=== PATIENT | female | born 1960 | race African-American/Black ===

== ENCOUNTER 2017-09-09 19:00 | Emergency (ER) | payer MEDICARE, MEDICAID | END 2017-09-09 19:31 | disposition home or self-care (01) | LOC: SCSER 19:00 | DX: G89.29 Other chronic pain (principal); M54.5 Low back pain; D64.9 Anemia, unspecified; E66.9 Obesity, unspecified; I50.9 Heart failure, unspecified; F41.9 Anxiety disorder, unspecified; M32.9 Systemic lupus erythematosus, unspecified; Z79.899 Other long term (current) drug therapy | CPT/HCPCS: 99283 ==

== ENCOUNTER 2017-09-11 20:02 | Emergency (ER) | payer MEDICARE, MEDICAID ==
--- NOTE | 2017-09-11 21:38 | RAD ---
RADIOGRAPH CHEST 1 VIEW: HISTORY: 56-year-old female with acute chest pain. FINDINGS: There is cardiomegaly. The thoracic aorta is tortuous and ectatic. There is no evidence of air space density, pulmonary edema, or pneumothorax. The lateral costophrenic angles are sharp. IMPRESSION: 1) No acute pulmonary findings. 2) Cardiomegaly without congestive heart failure. 3) Ectasia of thoracic aorta. janes POS: DEBBIE
[2017-09-11] MEDS ORDERED: predniSONE 20 MG TAB ONE (22:19)
[2017-09-11] MEDS ORDERED: Dexamethasone 4 mg/ml Vial ONE (22:23)
[2017-09-11 22:35] LABS: Hematocrit 37.6 % (36.0-47.0); Mean Platelet Volume 7.9 fL (7.4-10.4); Neutrophil 47 % (42-75); Red Blood Cell (RBC) Count 3.91 mill/uL (4.20-5.40); White Blood Cell (WBC) Count 5.5 thou/uL (4.8-10.8)
[2017-09-11 22:42] LABS: ALT (SGPT) 34 U/L (8-55); AST (SGOT) 37 U/L (5-34); Alkaline Phosphatase 95 U/L (40-150); Anion Gap 14 mmol/L (10-20); BUN (Urea Nitrogen) 10 mg/dL (9.8-20.1); Bilirubin, Total 0.5 mg/dL (0.2-1.2); CK (CPK) 147 U/L (29-168); Calc. Creatinine Clearance 0 mL/min (70-130); Calcium 9.8 mg/dL (7.8-10.44); Carbon Dioxide 25 mmol/L (22-29); Chloride 103 mmol/L (98-107); Estimated GFR-MDRD Greater than 90; Lipase 30 U/L (8-78); Protein, Total 7.8 g/dL (6.0-8.3)
[2017-09-11 22:46] LABS: Troponin I 0.012 ng/mL (< 0.028)
--- NOTE | 2017-10-13 13:18 | EKG ---
Test Reason : CP Blood Pressure : / mmHG Vent. Rate : 091 BPM Atrial Rate : 091 BPM P-R Int : 160 ms QRS Dur : 086 ms QT Int : 374 ms P-R-T Axes : 012 -25 -06 degrees QTc Int : 460 ms Sinus rhythm with occasional , and consecutive Premature ventricular complexes and Fusion complexes Moderate voltage criteria for LVH, may be normal variant Left axis deviation Abnormal ECG No changes c/w prior ([id number]) Confirmed by DUSTY LONGO DO ([id number]), electronic news gathering editor FINA PERLA ([id number]) on 10/13/2017 1:18:16 PM Referred By: Confirmed By:DUSTY LONGO DO
== END 2017-09-11 23:43 | disposition home or self-care (01) ==
LOC: ERS 20:02
DX: M54.41 Lumbago with sciatica, right side (principal); M54.42 Lumbago with sciatica, left side; R07.89 Other chest pain; D64.9 Anemia, unspecified; F41.9 Anxiety disorder, unspecified; M19.90 Unspecified osteoarthritis, unspecified site; E66.9 Obesity, unspecified; I50.9 Heart failure, unspecified; Z79.82 Long term (current) use of aspirin; Z79.899 Other long term (current) drug therapy
CPT/HCPCS: 71010; 80053; 82553; 83690; 84484; 85025; 93005; J1100; J7506

== ENCOUNTER 2017-09-17 09:47 | Emergency (ER) | payer MEDICARE, MEDICAID | END 2017-09-17 10:12 | disposition home or self-care (01) | LOC: SCSER 09:47 | DX: M54.5 Low back pain (principal); G89.29 Other chronic pain; D64.9 Anemia, unspecified; E66.9 Obesity, unspecified; F41.9 Anxiety disorder, unspecified; I50.9 Heart failure, unspecified; M32.9 Systemic lupus erythematosus, unspecified | CPT/HCPCS: 99283 ==

== ENCOUNTER 2018-07-02 16:08 | Emergency (ER) | payer MEDICARE, MEDICAID | END 2018-07-02 16:35 | disposition home or self-care (01) | LOC: SCSER 16:08 | DX: R52 Pain, unspecified (principal); F41.9 Anxiety disorder, unspecified; D64.9 Anemia, unspecified; I50.9 Heart failure, unspecified; E66.9 Obesity, unspecified; Z79.899 Other long term (current) drug therapy | CPT/HCPCS: 99284 ==

== ENCOUNTER 2018-09-01 15:18 | Emergency (ER) | payer MEDICARE, MEDICAID ==
[2018-09-01] MEDS ORDERED: HYDROcodone/Acetaminophen 10/325 mg Tablet ONE (17:30)
--- NOTE | 2018-09-01 18:21 | RAD ---
TIBIA AND FIBULA RIGHT LEG TWO VIEW 09/01/18 INDICATION: Pain. FINDINGS: Reference made to a 06/28/06 exam. There is no fracture or dislocation. IMPRESSION: No acute osseous abnormality of the right tibia or fibula. POS: VOLODYMYRK
--- NOTE | 2018-09-01 18:30 | RAD ---
TWO VIEW RIGHT FEMUR SERIES: 09/01/18 INDICATION: Pain. FINDINGS: There is limited visualization of the right hip due to overlying soft tissues which decreases penetra tion. There is no dislocation identified. Femur is otherwise intact. IMPRESSION: No definite acute osseous abnormality of the right femur, within limitations. If there is high level of clinical suspicion for injury at the proximal femur, consider dedicated imaging followup for more definitive evaluation. POS: MALOU
== END 2018-09-01 17:30 | disposition home or self-care (01) ==
LOC: ERS 15:18
DX: G89.29 Other chronic pain (principal); M79.661 Pain in right lower leg; F41.9 Anxiety disorder, unspecified; D64.9 Anemia, unspecified; E66.9 Obesity, unspecified; I50.9 Heart failure, unspecified; M19.90 Unspecified osteoarthritis, unspecified site; Z79.82 Long term (current) use of aspirin; Z79.899 Other long term (current) drug therapy

== ENCOUNTER 2018-12-29 16:05 | Emergency (ER) | payer MEDICARE, MEDICAID ==
[2018-12-29] MEDS ORDERED: traMADol HCl 50 MG TAB ONE (18:48)
== END 2018-12-29 18:40 | disposition home or self-care (01) ==
LOC: ERS 16:05
DX: K02.9 Dental caries, unspecified (principal); D64.9 Anemia, unspecified; E66.9 Obesity, unspecified; I50.9 Heart failure, unspecified; F41.9 Anxiety disorder, unspecified; I20.9 Angina pectoris, unspecified
CPT/HCPCS: 99282

== ENCOUNTER 2019-04-19 09:24 | Outpatient (CLI) | payer MEDICARE, OTHER ==
--- NOTE | 2019-04-19 10:20 | MMO ---
Bilateral MAMMO Bilat Screen [facility]. CLINICAL HISTORY: Patient is 58 years old and is seen for screening. The patient has no family history of breast cancer. The patient has no personal history of cancer. VIEWS: The views performed were: bilateral craniocaudal with tomosynthesis; bilateral mediolateral oblique; and bilateral mediolateral oblique with tomosynthesis. FILMS COMPARED: The present examination has been compared to prior imaging studies performed at [facility] on 01/04/2006 and 02/02/2006. MAMMOGRAM FINDINGS: There are scattered fibroglandular densities. There are benign appearing calcifications seen in both breasts. There are no suspicious masses, suspicious calcifications, or new areas of architectural distortion. IMPRESSION: THERE IS NO MAMMOGRAPHIC EVIDENCE OF MALIGNANCY. A ROUTINE FOLLOW-UP MAMMOGRAM IN 1 YEAR IS RECOMMENDED. THE RESULTS OF THIS EXAM WERE SENT TO THE PATIENT. ACR BI-RADS Category 2 - Benign finding MAMMOGRAPHY NOTE: 1. A negative mammogram report should not delay a biopsy if a dominant of clinically suspicious mass is present. 2. Approximately 10% to 15% of breast cancers are not detected by mammography. 3. Adenosis and dense breasts may obscure an underlying neoplasm. Reported by: ERI DOS SANTOS MD Electonically Signed: [id number]
--- NOTE | 2019-04-19 10:36 | BD ---
EXAM: DEXA bone density examination HISTORY: 58-year-old postmenopausal female for screening COMPARISON: None FINDINGS: L1--bone mineral density 1.081 g/sq cm; T score 0.8 L2--bone mineral density 1.087 g/sq cm; T score 0.5 L3--bone mineral density 1.044 g/sq cm; T score -0.4 L4--bone mineral density 1.078 g/sq cm; T score 0.2 Total L1-L4--bone mineral density 1.072 g/sq cm; T score 0.2 Left femoral neck--bone mineral density0.845; T score 0.0 Total proximal left femur--bone mineral density 1.025; T score 0.7 IMPRESSION: Normal bone density
== END 2019-04-19 09:25 | disposition home or self-care (01) ==
LOC: BICMAMMO 09:24
PROVIDERS: ATTEND Internal Medicine
DX: Z12.31 Encounter for screening mammogram for malignant neoplasm of breast (principal); Z13.820 Encounter for screening for osteoporosis
CPT/HCPCS: 77063; 77067; 77080

== ENCOUNTER 2019-05-09 06:56 | Emergency (ER) | payer MEDICARE, MEDICAID | END 2019-05-09 07:53 | disposition home or self-care (01) | LOC: ERS 06:56 | DX: S02.5XXA Fracture of tooth (traumatic), initial encounter for closed fracture (principal); G89.29 Other chronic pain; M54.5 Low back pain; D64.9 Anemia, unspecified; E66.9 Obesity, unspecified; I50.9 Heart failure, unspecified; F41.9 Anxiety disorder, unspecified; W18.30XA Fall on same level, unspecified, initial encounter | CPT/HCPCS: 99283 ==

== ENCOUNTER 2020-06-12 05:15 | Emergency (ER) | payer MEDICARE, MEDICAID | END 2020-06-12 05:48 | disposition home or self-care (01) | LOC: ERS 05:15 | DX: G89.29 Other chronic pain (principal); M54.5 Low back pain; K08.89 Other specified disorders of teeth and supporting structures | CPT/HCPCS: 99283 ==